=== PATIENT | female | born 1995 | race Two or more races ===

== ENCOUNTER 2023-08-07 17:49 | Emergency (ER) | payer OTHER ==
[~2023-08-07] VITALS: Ht 162.6 cm; Wt 61.2 kg
[2023-08-07] MEDS ORDERED: AMITRIPTYLINE H10 MG PO (18:03)
[2023-08-07] MEDS ORDERED: EFFEXOR XR150 MG PO (18:03)
[2023-08-07] MEDS ORDERED: AMBIEN5 MG PO (18:03)
[2023-08-07] MEDS ORDERED: STRATTERA10 MG (18:04)
[2023-08-07] MEDS ORDERED: BUSPIRONE HCL10 MG PO (18:04)
== END 2023-08-07 22:59 | disposition home or self-care (01) ==
LOC: ER 17:50
DX: S63.502A Unspecified sprain of left wrist, initial encounter (principal); V00.121A Fall from non-in-line roller-skates, initial encounter; Y93.89 Activity, other specified; Y92.89 Other specified places as the place of occurrence of the external cause; Y99.9 Unspecified external cause status